=== PATIENT | female | born 1995 | race Caucasian/White ===

== ENCOUNTER 2024-03-17 14:42 | Emergency (ER) | payer BC ==
[~2024-03-17] VITALS: Ht 180.3 cm; Wt 122.4 kg
[~2024-03-17 14:42] MED LIST: IRON COMPLEX PO; PENICILLN VK500 MG PO
[2024-03-17 14:48] VITALS: BP 137/79
[2024-03-17] MEDS ORDERED: ACETAMINOPHEN 500 MG TAB PO ONE (14:55)
[2024-03-17] MEDS ORDERED: KETOROLAC TROMETHAMINE 30 MG/ML SDV IM ONE (14:55)
[2024-03-17] MEDS ORDERED: METHOCARBAMOL 500 MG/TAB PO ONE (15:00)
[2024-03-17 15:02] VITALS: BP 95/45
[2024-03-17] MEDS ORDERED: predniSONE 20 MG/TAB PO ONE (15:05)
[2024-03-17] MEDS ORDERED: METHOCARBAMOL500 MG PO (15:06)
[2024-03-17] MEDS ORDERED: PREDNISONE50 MG PO (15:06)
[2024-03-17] MEDS ORDERED: IBUPROFEN600 MG PO (15:06)
[2024-03-17 15:16] VITALS: BP 113/69
== END 2024-03-17 15:17 | disposition home or self-care (01) | DRG 552 ==
LOC: ED 14:42
DX: M54.50 Low back pain, unspecified (principal)